=== PATIENT | female | born 1935 | race Caucasian/White ===

== ENCOUNTER 2019-01-01 20:00 | Emergency (ER) | payer MEDICARE ==
--- NOTE | 2019-01-01 20:27 | ED ---
Complex/Multi-Sys Presentation - HPI Summary HPI Summary: This patient is a 83 year old F presenting to [facility] per EMS with a chief complaint of a fall 2 hours ago. Patient states she was reaching for the door when she lost balance and fell. She notes she usually ambulates using a walker and lives in a community center. Symptoms aggravated by nothing. Symptoms alleviated by nothing. Patient reports a laceration on her right second finger. Patient denies pain. - History Of Current Complaint Chief Complaint: EDFall Time Seen by Provider: 01/01/19 20:19 Hx Obtained From: Patient Onset/Duration: Sudden Onset, Resolved Timing: Hours - pt fell 2 hours ago Aggravating Factor(s): nothing Alleviating Factor(s): nothing - Allergies/Home Medications Allergies/Adverse Reactions: Allergies Allergy/AdvReac Type Severity Reaction Status Date / Time gluten Allergy Unknown Verified 01/01/19 20:27 Reaction Details Milk Containing Products Allergy Unknown Verified 01/01/19 20:27 Reaction Details Home Medications: Home Medications Furosemide 20 mg PO DAILY 01/01/19 [History Confirmed 01/01/19] Lisinopril 10 mg PO ONCE 01/01/19 [History Confirmed 01/01/19] PMH/Surg Hx/FS Hx/Imm Hx Previously Healthy: No Sensory History: Denies: Hx Vision Problem, Hx Deafness Opthamlomology History: Denies: Hx Legally Blind EENT History: Denies: Hx Deafness - Surgical History Surgical History: Yes - Immunization History Immunizations Up to Date: Yes Infectious Disease History: No Infectious Disease History: Denies: Traveled Outside the [place] in Last 30 Days - Family History Known Family History: Positive: None - Social History Alcohol Use: Occasionally Alcohol Amount: wine Hx Substance Use: No Substance Use Type: Reports: None Hx Tobacco Use: No Smoking Status (MU): Never Smoked Tobacco Do You Chew or Dip Tobacco: No Have You Chewed or Dipped Tobacco in the LAST YEAR: No Have You Smoked in the Last Year: No Review of Systems Constitutional: Other - negative - pain. positive - fall Skin: Other - positive - laceration on right hand second finger All Other Systems Reviewed And Are Negative: Yes Physical Exam - Summary Physical Exam Summary: VITAL SIGNS: Reviewed. GENERAL: Patient is a well-developed and nourished FEMALE who is lying comfortable in the stretcher. Patient is not in any acute respiratory distress. HEAD AND FACE: Non tender swelling over left parietal, occipital area. No ecchymosis, hematomas or skull depressions. No sinus tenderness. EYES: PERRLA, EOMI x 2, No injected conjunctiva, no nystagmus. EARS: Hearing grossly intact. Ear canals and tympanic membranes are within normal limits. MOUTH: Oropharynx within normal limits. NECK: Supple, trachea is midline, no adenopathy, no JVD, no carotid bruit, no c- spine tenderness, neck with full ROM CHEST: Symmetric, no tenderness at palpation LUNGS: Clear to auscultation bilaterally. No wheezing or crackles. CVS: Regular rate and rhythm, S1 and S2 present, no murmurs or gallops appreciated. ABDOMEN: Soft, non-tender. No signs of distention. No rebound no guarding, and no masses palpated. Bowel sounds are normal. EXTREMITIES: Half cm laceration over proximal phalanx of right second finger of palmar surface, FROM in all major joints, no edema, no cyanosis or clubbing. NEURO: Alert and oriented x 3. No acute neurological deficits. Speech is normal and follows commands. SKIN: Dry and warm Triage Information Reviewed: Yes Vital Signs On Initial Exam: Initial Vitals Temp Pulse Resp BP Pulse Ox 99.5 F 88 23 130/76 97 01/01/19 20:00 01/01/19 20:00 01/01/19 20:00 01/01/19 20:00 01/01/19 20:00 Vital Signs Reviewed: Yes Procedures - Laceration/Wound Repair 1 Location: upper extremity - proximal phalanx of right second finger of palmar surface Description: Linear Anesthesia: 1.0%, Lido Suture Type: Nylon Number of Sutures: 1 - 1 4O stitch Diagnostics - Vital Signs Vital Signs Temp Pulse Resp BP Pulse Ox 01/01/19 20:00 99.5 F 88 23 130/76 97 - Laboratory Lab Statement: Any lab studies that have been ordered have been reviewed, and results considered in the medical decision making process. - CT Cervical/Spine CT Interpretation Completed By: Radiologist Summary of CT Findings: IMPRESSION: 1. No evidence of acute fracture involving the cervical vertebral bodies or. posterior elements. 2. Slight retrolisthesis of C5 on C6 secondary degenerative changes of the disc. space and facet joints. 3. Multilevel degenerative cervical disc disease and facet disease. No central. canal stenosis. Variable degrees of neural foraminal narrowing secondary. degenerative changes of the facet joints and disc space. 4. Slight posterior displacement of the occipital condyles in reference to. lateral mass of C1. The Jameson ratio is negative. No soft tissue swelling. These findings were reviewed by Dr. Garcia. Brain CT Interpretation Completed By: Radiologist Summary of CT Findings: IMPRESSION: No acute intracranial findings. These findings were reviewed by Dr. Garcia. Re-Evaluation - Re-Evaluation First Eval Re-Evaluation Time: 21:14 Change: Improved Comment: pt is able to ambulate with a walker Complex Multi-Symp Course/Dx Course Of Treatment: This patient is a 83 year old F presenting to [facility] per EMS with a chief complaint of a fall 2 hours ago. Patient states she was reaching for the door when she lost balance and fell. She notes she usually ambulates using a walker and lives in a community center. Symptoms aggravated by nothing. Symptoms alleviated by nothing. Patient reports a laceration on her right second finger. Patient denies pain. Physical exam findings show half cm laceration over proximal phalanx of right second finger of palmar surface and non tender swelling over left parietal, occipital area. Laceration repair procedure: Lidocaine 1% nylon 4O 1 stitch over half cm laceration on proximal phalanx of right second finger of palmar surface. Cervical Spine CT IMPRESSION : 1. No evidence of acute fracture involving the cervical vertebral bodies or. posterior elements. 2. Slight retrolisthesis of C5 on C6 secondary degenerative changes of the disc. space and facet joints. 3. Multilevel degenerative cervical disc disease and facet disease. No central. canal stenosis. Variable degrees of neural foraminal narrowing secondary. degenerative changes of the facet joints and disc space. 4. Slight posterior displacement of the occipital condyles in reference to. lateral mass of C1. The Jameson ratio is negative. No soft tissue swelling. Brain CT IMPRESSION: No acute intracranial findings. During the ED course, the pt was given Bacitracin. Final diagnosis is finger laceration. Pt is agreeable to discharge. Pt was told to follow up with a primary care provider within 1-2 days and to return to the ED for any new or worsening symptoms. - Diagnoses Provider Diagnoses: Finger laceration Discharge - Sign-Out/Discharge Documenting (check all that apply): Patient Departure - discharge Patient Received Moderate/Deep Sedation with Procedure: No - Discharge Plan Condition: Stable Disposition: HOME Patient Education Materials: Finger Laceration (ED) Referrals: [facility] [Outside] - 1 Day Additional Instructions: Follow up with a primary care provider within 1-2 days. Return to the ED for any new or worsening symptoms. - Attestation Statements Document Initiated by Scribe: Yes Documenting Scribe: Bowen Chavez Provider For Whom Scribe is Documenting (Include Credential): Dr. Alissa Garcia MD Scribe Attestation: IBowen scrkaried for Dr. Alissa Garcia MD on 01/02/19 at 0047. Status of Scribe Document: Ready
[2019-01-01] MEDS ORDERED: Bacitracin OINTMENT* 0.5% 0.5 oz TUBE TOPICAL ONE (20:43)
[2019-01-01] MEDS ORDERED: Bacitracin OINTMENT PAK TOPICAL ONE (21:00)
[2019-01-02 01:21] VITALS: BP 115/80
== END 2019-01-02 01:20 | disposition home or self-care (01) ==
LOC: ED 20:00
DX: S61.210A Laceration without foreign body of right index finger without damage to nail, initial encounter (principal); W19.XXXA Unspecified fall, initial encounter; Y92.9 Unspecified place or not applicable; Z79.899 Other long term (current) drug therapy; M50.30 Other cervical disc degeneration, unspecified cervical region
CPT/HCPCS: 12001; 70450; 72125; 99283; A9270-GY